=== PATIENT | male | born 1965 | race Caucasian/White ===

== ENCOUNTER 2019-09-07 05:04 | Day surgery (SDC) | payer OTHER ==
[2019-09-06 10:48] VITALS: BMI 25.1
[2019-09-07] MEDS ORDERED: LIDOCAINE 1%-EPI 1:100,000 30 ML MDV IJ ONE (09:57)
[2019-09-07] MEDS ORDERED: ROCURONIUM BROMIDE 50 MG/5 ML SYRINGE ONE (10:14)
[2019-09-07] MEDS ORDERED: MIDAZOLAM HCL 2 MG/2 ML SINGLE DOSE VIAL ONE (10:14)
[2019-09-07] MEDS ORDERED: fentaNYL CITRATE 250 MCG/5 ML VIAL ONE (10:15)
--- NOTE | 2019-09-07 10:20 | HP ---
History & Physical Update - History History: No Change - Physical Physical: No Change - Assessment Assessment: No Change - Plan Plan: No Change (Initial H&P completed 08/23/19 and is located in his paper nichole estrella. No new complaints or medications. Will be scanned into his [facility])
[2019-09-07] MEDS ORDERED: ceFAZolin SODIUM 1 GM VIAL IVPB ONE (10:40)
[2019-09-07] MEDS ORDERED: LIDO 2%/EPI 1:200000 PRESRVFRE (20 ML SDVIAL) INF ONE (10:50)
[2019-09-07] MEDS ORDERED: BUPIVACAINE HCL/PF 0.5% (5 MG/ML) 30 ML VIAL IJ ONE (10:50)
[2019-09-07] MEDS ORDERED: NEOSTIGMINE METHYLSULFATE 0.5 MG/ML - 10 ML MDV ONE (11:46)
[2019-09-07] MEDS ORDERED: ACETAMINOPHEN 1000 MG/100 ML VIAL (NON FORMULARY) IVPB ONE (12:20)
--- NOTE | 2019-09-07 12:20 | OP ---
Operative Note - Note: Operative Date: 09/07/19 Pre-Operative Diagnosis: Right inguinal hernia Operation: Open repair right inguinal hernia (direct), mesh plug & patch Post-Operative Diagnosis: Same as Pre-op Surgeon: Kai Jeffery Wreath Machine Operator: Isidro Santacruz Anesthesiologist/INSTRUCTIONAL WRITER: Jordan Perera Anesthesia: General Specimens Removed: lipoma of cord & hernia sac Estimated Blood Loss (mls): 10 Operative Report Dictated: Yes
--- NOTE | 2019-09-07 12:28 | SURG ---
Surgery Film Reader Note Film Reader: Isidro Santacruz PA-C Date of Service: 09/07/19 Diagnosis: Right inguinal hernia Procedure: Open repair right inguinal hernia (direct), mesh plug & patch I was present for the entirety of the operative procedure. For further detail, please refer to operative report. Visit type - Case Type Case Type: Scheduled - New patient This patient is new to me today: Yes Date on this admission: 09/07/19
[2019-09-07] MEDS ORDERED: ACETAMINOPHEN 325 MG TABLET (FP) PO PRN (12:30)
[2019-09-07] MEDS ORDERED: oxyCODONE HCL 5 MG TABLET PO PRN (12:30)
[2019-09-07] MEDS ORDERED: ACETAMINOPHEN INJECTION 100 ML IVPB ONE (12:41)
[2019-09-07] MEDS ORDERED: LACTATED RINGERS SOLUTION 1,000 ML IV SCH (14:15)
[2019-09-07 15:33] VITALS: BP 113/69; PULSE 81; TEMP 97.5
--- NOTE | 2019-09-07 20:08 | OP ---
DATE OF OPERATION: 09/07/2019 SURGICAL ATTENDING: Irma Aguirre MD. RETURNS PROCESSOR: MISSAEL Kaufman. PREOPERATIVE DIAGNOSIS: Right inguinal hernia. POSTOPERATIVE DIAGNOSIS: Right inguinal hernia. ANESTHESIA: General endotracheal anesthesia. PROCEDURE: Right inguinal hernia repair with mesh. DESCRIPTION OF PROCEDURE: The patient was taken into the operating room, placed in the supine position, endotracheally intubated. The right groin was shaved and prepped and draped in the usual sterile fashion. Local anesthesia was administered in the area of the right groin as well as to block the lateral incoming nerve. A 6-cm incision was made parallel to the inguinal ligament and carried down to subcutaneous tissues. The external oblique fascia was identified, uncovered, and the internal ring was identified. It was then incised and the external oblique fascia opened and reflected superiorly and inferiorly. The spermatic cord was identified, dissected free from surrounding tissues, and a Swatara drain was placed. The vas deferens and spermatic vessels were identified and preserved. The cremaster fibers were transected. A hernia sac was identified, dissected free from surrounding tissues, and . It was clamped near the internal ring, transected, and sent to pathology for evaluation. The sac was then ligated with a suture ligature. The transversalis fascia was identified and appeared somewhat weak, however no definite hernia was seen. Therefore it was presumed that this was an indirect hernia. A large plug and patch mesh were then placed. The plug was placed into the internal ring over the ligated sac and secured to the surrounding tissues with 2 Prolene sutures. The patch was then sutured to the pubic tubercle and a running 2-0 Prolene stitch was used to approximate the lower side of the patch to the shelving edge of the inguinal ligament. New stitches were placed to stitch the superior aspect of the mesh to the conjoined tendon medially and the internal oblique superiorly. The mesh was then sewn together laterally and an appropriate size of a hole was left remaining for the spermatic cord. Hemostasis was achieved. The external oblique was then closed with a running stitch. The subcutaneous tissues and skin were then sutured closed. Sterile dressings were placed. The patient was then awakened, extubated, and taken to recovery in stable condition. Dr. Aguirre, the attending surgeon, was present throughout the entire procedure. IRMA AGUIRRE M.D. [id number]
--- NOTE | 2019-09-11 17:06 | PATH ---
Surgical Pathology Report Patient Name: BERNIE IGLESIAS [facility]. Rec. #: [id number] /Age/Gender: 1965 (Age: 54) / M Account: [id number] Location: [facility] SURGICAL Taken: 09/07/2019 Received: 09/07/2019 Reported: 09/11/2019 Physicians: Kai Jeffery M.D. Specimen(s) Received A: LIPOMA OF THE CORD B: RIGHT INGUINAL HERNIA SAC Clinical History Hernia Final Diagnosis A. LIPOMA OF THE CORD, EXCISION: MATURE ADIPOSE TISSUE, CONSISTENT WITH LIPOMA. B. RIGHT INGUINAL HERNIA SAC, EXCISION: CONSISTENT WITH HERNIA SAC. Electronically Signed Tanya Ocampo M.D. Gross Description A. Received in formalin labeled "lipoma of the cord," is a 3.8 x 1.6 x 0.8 cm montoya-yellow portion of adipose tissue with attached fibrous tissue. Edge Trimmer Mechanic sections are submitted in one cassette. B. Received in formalin labeled "right inguinal hernia sac," is a 5.7 x 2.5 x 0.8 cm montoya-brown, irregular portion of fibromembranous tissue, consistent with a hernia sac. Edge Trimmer Mechanic sections are submitted in one cassette. /09/10/2019 saudi09/10/2019
== END 2019-09-07 15:35 | disposition home or self-care (01) ==
LOC: JASU-SURG 05:04
PROVIDERS: ATTEND Surgery
PROC: 0YU50JZ Supplement Right Inguinal Region with Synthetic Substitute, Open Approach (ICD-10-PCS; principal; 2019-09-07 10:00)
DX: K40.90 Unilateral inguinal hernia, without obstruction or gangrene, not specified as recurrent (principal)
CPT/HCPCS: 88302-TC; 88304-TC; 94760; J0131